=== PATIENT | male | born 1985 | race Caucasian/White ===

== ENCOUNTER 2016-10-08 18:25 | Emergency (ER) | payer SELFPAY ==
[2016-10-08 18:53] LABS: BASO % 0.3 % (0.2-1.2); EOS # 0.2 10_X3_uL (0.0-0.5); EOS % 2.3 % (0.8-7.0); GRAN # 4.1 10_X3_uL (1.8-5.4); GRAN % 58.6 % (34.0-67.9); HEMATOCRIT 35.6 % (40-51); HEMOGLOBIN 12.1 g/dL (13.7-17.5); LYMPH # 2.4 10_X3_uL (1.3-3.6); LYMPH % 33.8 % (21.8-53.1); MEAN CORPUSCULAR VOLUME 94.2 fL (79-92); MEAN PLATELET VOLUME 9.5 fl (7.5-11.5); MONO # 0.4 10_X3_uL (0.3-0.8); PLATELET COUNT 198 x10_3/uL (163-337); RED BLOOD COUNT 3.78 x10_6/uL (4.6-6.1)
[2016-10-08 19:07] LABS: BLOOD UREA NITROGEN 6 mg/dL (7-18); CALCIUM 7.6 mg/dL (8.7-10.7); CARBON DIOXIDE 23 mmol/L (21-32); CREATININE 0.7 mg/dL (0.6-1.3); GLUCOSE,RANDOM 95 mg/dL (70-99); POTASSIUM 3.1 mmol/L (3.5-5.1); SODIUM 140 mmol/L (136-145)
== END 2016-10-09 06:59 | disposition home or self-care (01) ==
LOC: ER 18:25
PROVIDERS: General Practice
DX: T40.601A Poisoning by unspecified narcotics, accidental (unintentional), initial encounter (principal); R41.82 Altered mental status, unspecified; I45.81 Long QT syndrome
CPT/HCPCS: 36415; 51702; 70450; 80048; 80307; 82962; 85025; 93005; 96360; 96361; 96374; 96375; 96376; 99070; 99285-25